=== PATIENT | male | born 2000 ===

== ENCOUNTER 2025-06-11 22:00 | Emergency (ER) | payer SELFPAY ==
[2025-06-11 22:04] VITALS: BMI 19.8
--- NOTE | 2025-06-11 22:05 | EDNOTE_ITS ---
ED General RME/HPI General Chief complaint: Medical Clearance Stated complaint: MEDICAL CLEARANCE Time Seen by Provider: 06/11/25 22:04 Arrival date/time: 06/11/25 22:00 CC: Medical clearance HPI patient has no specific complaints other than right ankle pain because he has been on his feet . Patient is refusing physical exam or vital signs. He is awake alert responding to most questions appropriately. Currently he is handcuffed and escorted by police lieutenant. Related Data Allergies Allergy/AdvReac Type Severity Reaction Status Date / Time No Known Allergies Allergy Verified 06/11/25 22:04 Review of Systems Review of Systems Narrative Review of Systems: GEN: No fever, no chills, no weight loss EYES: No discharge, no visual changes, no pain HEENT: No ear pain, no congestion, no sore throat PULM: No shortness of breath, no cough, no congestion CV: No chest pain, no dyspnea on exertion, no palpitations GI: No nausea, no vomiting, no diarrhea, no pain, no constipation : No frequency, no urgency, no dysuria MUSC/SKEL: No joint pain, no back pain SKIN: No rash PSYCH: No hallucinations, no depression HEME/LYMPH: No easy bleeding or bruising tendencies NEURO: No weakness, no headache ED Exam Narrative Physical exam: Patient refused physical exam however under observation he ambulates without complication tracking with his eyes responding to questions. Course Quality Measures none Discharge Plan Plan Patient Disposition: Shelter/Court/Law Patient condition on transfer: Stable Problem List Clinical Impression: Medical clearance for incarceration Patient/Caregiver Discharge Instructions Print Language: Swedish BIN/ECLI Supervising Physician MILES Supervising Physician: Juancho Goodwin ENP
== END 2025-06-11 22:15 ==
LOC: SERX 22:44
PROVIDERS: Emergency Provider Emergency Medicine
DX: Z02.89 Encounter for other administrative examinations (principal); M25.571 Pain in right ankle and joints of right foot
CPT/HCPCS: 99281

== ENCOUNTER 2025-07-09 08:15 | Emergency (ER) | payer SELFPAY ==
[2025-07-09 08:19] VITALS: PULSE 66; RESP 18
[2025-07-09 08:36] VITALS: BP 134/82; PULSE 75; RESP 18; O2SAT 100
[2025-07-09 10:35] LABS: Amphetamine/Methamp Scrn,U Negative (Negative); Barbiturate Screen,Urine Negative (Negative); Benzodiazepines Screen,Urine Negative (Negative); Benzoylecgonine Screen, Ur Negative (Negative); Fentanyl Screen,Urine Negative (Negative); Opiate Screen,Urine Negative (Negative); THC Screen,Urine Negative (Negative)
--- NOTE | 2025-07-09 10:57 | EDNOTE_ITS ---
ED Psych RME/HPI General Chief Complaint: General Adult/Misc Complain Stated Complaint: MENTAL EVAL, HOLD Time Seen by Provider: 07/09/25 08:53 Arrival date/time: 07/09/25 08:15 Limitations: no limitations RME / HPI RME / HPI Narrative: 25 year old male presents to the ED [facility]ERT from [facility] on a 5150 hold. Per 5150 report that was written by clinician Ashley Koehler, the patient was due to be released today. However, due to bizarre behaviors staff had requesting an mental health evaluation. The 5150 report states the patient displayed emotional dysregulation and responding to internal stimuli. The patient was unable to safety plan with staff and placed on a hold for gravely disabled. In the ED, the patient is not answering any questions. Related Data Allergies Allergy/AdvReac Type Severity Reaction Status Date / Time No Known Allergies Allergy Verified 07/09/25 08:23 Review of Systems Review of Systems ROS Unobtainable: unobtainable due to mental status (Patient is not answering any questions. ) Past Medical History Past Medical History CARDIAC: Negative Congestive Heart Failure RESPIRATORY: Negative Chronic Obstructive Pulmonary Disease (COPD) GENITOURINARY: Negative Renal Disease ENDOCRINE: Negative Diabetes Mellitus Type 1 or Diabetes Mellitus Type 2 Social History SMOKING STATUS: Never smoker ED Exam General Limitations: Present no limitations General appearance: Present alert (makes eye contact but is nonverbal ) and in no apparent distress Head Head exam: Present atraumatic Eye Eye exam: Present normal appearance, PERRL and EOMI ENT ENT exam: Present normal exam, normal oropharynx and mucous membranes moist Neck Neck exam: Present normal inspection, full ROM and trachea midline Chest Chest inspection: Present normal inspection and symmetric chest wall rise Respiratory Respiratory exam: Present normal lung sounds bilaterally Cardiovascular Cardiovascular exam: Present regular rate, normal rhythm and normal heart sounds Abdominal Exam Abdominal exam: Present soft and normal bowel sounds Extremities Exam Extremities exam: Present normal inspection and full ROM Back Exam Back exam: Present normal inspection and full ROM Neurological Exam Neurological exam: Present alert (makes eye contact but is nonverbal ) Skin Skin exam: Present warm, dry, intact and normal color Course Quality Measures none Orders Category Date Time Status One-to-one observation NOW Care 07/09/25 11:10 Active Suicide precautions NOW Care 07/09/25 11:11 Active Acetaminophen Stat Lab 07/09/25 12:48 Completed Alcohol, Blood Medical Stat Lab 07/09/25 12:48 Completed Basic Metabolic Panel Stat Lab 07/09/25 12:48 Completed CBC Stat Lab 07/09/25 12:48 Completed Drug Screen,Urine Stat Lab 07/09/25 10:02 Completed Salicylate Stat Lab 07/09/25 12:48 Completed Vital Signs Vital signs: Vital Signs Pulse Rate 75 07/09/25 08:36 Respiratory Rate 18 07/09/25 08:36 Blood Pressure 134/82 H 07/09/25 08:36 Pulse Oximetry (%) 100 07/09/25 08:36 Oxygen Delivery Method Room Air 07/09/25 08:36 Pulse ox is 100% on room air which is adequate. Psych MDM Narrative MDM Narrative:: Sushma Wade am scribing for and in the presence of Dr. Wilson. 1300: Patient is medically cleared for mental health evaluation. 1415: The patient has been evaluated by our social media coordinator and upheld the 5150 hold. At this time pending LPS facility placement. The patient has been accepted by Dr. Cabrera at [facility]. EMS p/u 21:00. Patient data External records reviewed:: [facility] previous records and EMS form Clinical information provided by:: EMS Social determinants that could affect healthcare access:: none Patient has the following chronic illnesses:: No chronic medical hx reported How is presenting disease/condition affected by chronic disease/condition?: no chronic disease Evaluation data The following diagnostics were reviewed and interpreted by me:: lab results Lab and/or radiology exams considered but not ordered:: None Interpretation Summary: CBC and CMP are unremarkable UDS is unremarkable Medications / Prescriptions Medications or Prescriptions considered but not ordered:: None Medication administrations:: None Consultations Consultation(s) initiated? (list below): No Diagnosis Psych Differential Diagnosis: acute psychosis, chronic schizophrenia, bipolar disorder, depression, drug-induced psychotic disorder and acute anxiety Most likely diagnosis given after review of the tests above:: Suicidal ideation Admission Indicated Admission indicated?: not indicated Explain why admission is indicated or not indicated:: Txfer to [facility] facility Admission Request Was there a request for admission?: No Disposition Plan Disposition Plan: Transfer (to [facility] facility ) Discharge Plan Prescriptions/Referrals Referrals: No Primary/Family,Physician [Primary Care Provider] - In 1 week Problem List Clinical Impression: Suicidal ideation Patient/Caregiver Discharge Instructions Print Language: [place] Citizen
[2025-07-09 12:35] VITALS: BP 121/77; PULSE 64; RESP 15; O2SAT 99
[2025-07-09 13:15] LABS: Basophils # (Auto) 0.1 Thou/mm3 (0.0-0.2); Basophils % (Auto) 1 % (0-2.5); Eosinophils # (Auto) 0.2 Thou/mm3 (0.0-0.5); Eosinophils % (Auto) 4 % (0-10); Hematocrit 37.0 % (41.0-53.0); Hemoglobin 13.2 g/dL (13.5-16.0); Immature Granulocytes Auto 0.03 Thou/mm3 (0.00-0.00); Lymphocytes # (Auto) 2.3 Thou/mm3 (1.0-4.8); Lymphocytes % (Auto) 42 % (10-50); Mean Corpuscular HGB Conc 35.7 g/dl (31.0-37.0); Mean Corpuscular Hemoglobin 29.9 pg (25.0-35.0); Mean Corpuscular Volume 84 fL (80-100); Monocytes # (Auto) 0.6 Thou/mm3 (0.0-0.8); Monocytes % (Auto) 12 % (0-12); Neutrophils # (Auto) 2.2 Thou/mm3 (1.8-7.7); Neutrophils % (Auto) 41 % (37-80); Nucleated Red Blood Cell # 0.00 Thou/mm3 (0.00-0.00); Nucleated Red Blood Cell % 0 /100 WBC (0); Platelet Count 223 Thou/mm3 (140-440); RDW Standard Deviation 38.6 fL (35.1-43.9); Red Blood Count 4.41 Miln/mm3 (4.50-5.90); White Blood Count 5.5 Thou/mm3 (3.8-10.6)
[2025-07-09 13:52] LABS: Acetaminophen < 2.0 mcg/mL (10.0-20.0); Alcohol, Blood Medical < 3.0 mg/dL (0-10.0); Anion Gap 8 (7-16); BUN/Creatinine Ratio 20 Ratio (12-20); Blood Urea Nitrogen 20 mg/dL (9-23); Calcium 9.6 mg/dL (8.3-10.6); Carbon Dioxide 29.7 mMol/L (20.0-31.0); Chloride 103 mMol/L (98-107); Creatinine (Component) 1.0 mg/dL (0.6-1.3); Estimated Creatinine Clearance 100.5 mL/min (>60); Glucose 91 mg/dL (74-106); Osmolality,Calculated 283 (275-295); Potassium 3.8 mMol/L (3.4-5.1); Salicylate < 3.0 mg/dL; Sodium 141 mMol/L (136-145); eGFR > 60 See Note
--- NOTE | 2025-07-09 14:40 | PC.NURSE ---
Unable to perform Oxford Suicide Scale d/t patient refusal to answer questions
--- NOTE | 2025-07-09 14:45 | PC.SS ---
Patient Ras De León is a 25-Year-old male who was BIB [facility], was referred for a 5150 hold consideration due to gravely disabled. Tara GONZALEZ met with patient at bedside to conduct an initial assessment.? Tara GONZALEZ explained role and reason for encounter. During the assessment, the patient was notably unengaged; avoiding eye contact and taking long pauses before answering questions. During the assessment, the patient reported he did not have any visual or auditory hallucinations at the time and denied any history of mental health issue as well and denies the use of substance use. When Tara GONZALEZ asked patient about food and intermediate, the patient was unwilling to provide answers as well as declined to answer when asked any history of suicidal ideation, patient stated, ?I don?t feel comfortable answering that.? Patient was unable to articulate a safety plan involving his mother or any support system. ?With further discussing the case with [facility]. At this time, due to the patient?s significant emotional dysregulation and lack of engagement and inability to form a safety plan, as well as inability to explain how he will meet his basic needs the patient does meet criteria for a 5150 hold for Gravely Disabled.
--- NOTE | 2025-07-09 15:00 | PC.SS ---
Addendum entered by Tara Peñaloza 07/09/25 15:40: SS was contacted by Eusebio from [facility] for acceptance. Accepting provider is Paresh Hunt. Nurse to Nurse Report at 2100 at [phone] and time of arrival at 2200. SS set up transportation through [facility] for 2200. SS updated Patient's nurse, Curtis. Original Note: SS sent out packet to [facility] and spoke to Eusebio who informed SS they would review and contact SS back if able to accept.
--- NOTE | 2025-07-09 16:48 | PC.CM ---
Melo De León is a 25 year old male who presented to the ED on a GD 5150 from [facility]. LACQUER SPRAYER made face to face contact with the patient. Role and reason for the contact was explained. During the contact LACQUER SPRAYER made several attempt for patient to engage in conversation, however patient was not able or unwilling to engage. Patient was non-verbal through-out the contact. Patient appeared to gaze off. Patient is not able to safety plan or unwilling. Patient is also not able to provide next of kin information at this time. At this time, 5150 hold will be upheld for psychiatric placement. Advisement attempted with the patient.
[2025-07-09 17:30] VITALS: BP 127/78; PULSE 58; RESP 14; O2SAT 99
--- NOTE | 2025-07-09 21:23 | PC.NURSE ---
unable to assess pt's SI. Pt is nonverbally responsive. He would sit with a blank look on his face. Provideer made aware.
== END 2025-07-09 21:24 ==
PROVIDERS: Emergency Provider Family Medicine
DX: R45.851 Suicidal ideations (principal)
CPT/HCPCS: 36415; 80048; 80307; 80320; 80329; 85025; 99283; G0480